=== PATIENT | male | born 1990 | race Two or more races ===

== ENCOUNTER 2020-07-01 18:35 | Emergency (ER) | payer SELFPAY ==
[~2020-07-01] VITALS: Ht 172.7 cm; Wt 63.5 kg
[2020-07-01 18:35] VITALS: BP 142/92
--- NOTE | 2020-07-01 18:35 | NUR ---
ED Nurse Note: Pt CL[place]RIAN from the a parking structure c/o altered mental status. Per EMS, pt was given Narcan 4mg intranasal. Pinpoint pupils noted. AAOx1, follows simple command. No SOB, on room air. ERMD at bedside.
--- NOTE | 2020-07-01 19:10 | NUR ---
ED Nurse Note: Recieved care from Aimee
--- NOTE | 2020-07-01 19:45 | NUR ---
ED Nurse Note: Pt is resting comfortably, able to talk in complete sentances, awae aand speaks approprietly. A/o/4, Vitals stable as documetned on RA.
[2020-07-01 19:46] VITALS: BP 130/85
[2020-07-01 20:57] VITALS: BP 115/85
--- NOTE | 2020-07-01 20:59 | NUR ---
ER DISCHARGE NOTE: Patient is cleared to be discharged per ERMD, pt is aox4, on room air, with stable vital signs. pt was given dc and prescription instructions, pt was able to verbalize understanding, pt id band and iv site removed without complications. pt is able to ambulate with steady gait. pt took all belongings.
--- NOTE | 2020-07-05 00:09 | Emergency Room Report ---
History of Present Illness General Chief Complaint: Altered Level of Consciousness Source: Patient, EMS Present Illness HPI 30-year-old male presents for substance abuse. Brought in by EMS. Found altered today. Pinpoint pupils. Given Narcan. Patient is alert and oriented now. Admits to methamphetamine use. Denies alcohol use or other drug use. States he feels okay. Feels thirsty. Denies SI or HI. Denies pain. Denies nausea or vomiting. Denies any difficulty breathing. No other aggravating relieving factors. Denies any other associated symptoms Allergies: Coded Allergies: No Known Allergies (Unverified , 07/01/20) COVID-19 Screening Contact w/high risk pt: No Experienced COVID-19 symptoms?: No COVID-19 Testing performed [employer]ION[employer] MEDICAL DIRECTOR: No Patient History Past Medical History: none Past Surgical History: none Pertinent Family History: none Social History: Reports: drug use; Denies: smoking, alcohol use Immunizations: UTD Reviewed Nursing Documentation: PMH: Agreed; PSxH: Agreed Review of Systems All Other Systems: negative except mentioned in HPI Physical Exam Vital Signs Date Time Temp Pulse Resp B/P (MAP) Pulse Ox O2 Delivery O2 Flow Rate FiO2 07/01/20 18:22 98.1 82 18 142/92 (109) 98 Room Air Sp02 EP Interpretation: reviewed, normal General Appearance: no apparent distress, alert, GCS 15, non-toxic Head: normocephalic, atraumatic Eyes: bilateral eye normal inspection, bilateral eye PERRL ENT: hearing grossly normal, normal pharynx, no angioedema, normal voice Neck: full range of motion, supple/symm/no masses Respiratory: chest non-tender, lungs clear, normal breath sounds, speaking full sentences Cardiovascular #1: regular rate, rhythm, no edema Cardiovascular #2: 2+ carotid (R), 2+ carotid (L), 2+ radial (R), 2+ radial (L), 2+ dorsalis pedis (R), 2+ dorsalis pedis (L) Gastrointestinal: normal bowel sounds, non tender, soft, non-distended, no guarding, no rebound Rectal: deferred Genitourinary: normal inspection, no CVA tenderness Musculoskeletal: back normal, normal range of motion, gait/station normal, non- tender Neurologic: alert, motor strength/tone normal, oriented x3, sensory intact, responsive, speech normal Psychiatric: no suicidal/homicidal ideation, no delusions, anxious Reflexes: 3+ bicep (R), 3+ bicep (L), 3+ tricep (R), 3+ tricep (L), 3+ knee (R), 3+ knee (L) Lymphatic: no adenopathy Medical Decision Making Homeless Attestation I, The treating physician Dr. Whitaker, have assessed and agrees that patient is medically stable for discharge to an outpatient disposition. Diagnostic Impression: Primary Impression: Substance abuse ER Course Hospital Course 30-year-old male found altered. Awake after Narcan. Clinical course Patient placed on stretcher. Patient is able to provide an adequate history. Admits to methamphetamine use. Denies pain. Exam unremarkable. Oriented x3. Patient given IV fluids. Observed for 2 hours. Safe for discharge with close outpatient follow-up. Homeless checklist completed Diagnosis - substance abuse stable and discharged. Followup with PMD. Return to ED if symptoms recur or worsen Last Vital Signs Date Time Temp Pulse Resp B/P (MAP) Pulse Ox O2 Delivery O2 Flow Rate FiO2 07/01/20 20:57 98.2 80 16 115/85 99 Room Air Status: improved Disposition: HOME, SELF-CARE Condition: Stable Referrals: NOT CHOSEN IPA/,REFERRING (PCP) [facility] Patient Instructions: Stimulant Use Disorder-Methamphetamines Scott Whitaker MD Jul 05, 2020 00:09
== END 2020-07-01 21:00 | disposition home or self-care (01) ==
LOC: EDBD 18:35 → EMR 19:54
DX: F15.10 Other stimulant abuse, uncomplicated (principal)
CPT/HCPCS: 96360; 99284